=== PATIENT | female | born 1980 | race Caucasian/White ===

== ENCOUNTER 2022-07-25 09:26 | Emergency (ER) | payer BC ==
[~2022-07-25] VITALS: Ht 170.2 cm; Wt 98.1 kg
--- NOTE | 2022-07-25 09:49 | NUR ---
DR SWARTZ AT THE BEDSIDE
--- NOTE | 2022-07-25 11:00 | NUR ---
[id number] FROM HOME FOR GEN BODY WEAKNESS, FATIGUE, COUGH, DIZZINESS, ELEVATED TEMP (102F AT HOME). TOOK TYLENOL TODAY 0700. PLACED ON BED, AAOX4, BREATHING EVEN AND UNLABORED SATURATING AT 98%RA
[2022-07-25 11:30] VITALS: BP 125/75
== END 2022-07-25 11:25 | disposition home or self-care (01) ==
LOC: ER 09:33
DX: U07.1 COVID-19 (principal); I10 Essential (primary) hypertension; E11.9 Type 2 diabetes mellitus without complications; Z88.2 Allergy status to sulfonamides; Z88.8 Allergy status to other drugs, medicaments and biological substances; Z60.2 Problems related to living alone